=== PATIENT | female | born 1965 | race Two or more races ===

== ENCOUNTER 2020-09-23 13:57 | Outpatient (CLI) | payer BC, SELFPAY | END 2020-09-23 13:58 | disposition home or self-care (01) | LOC: ANHCOVIDVC 13:58 | DX: Z23 Encounter for immunization (principal) | CPT/HCPCS: 0001A; 91300 ==

== ENCOUNTER 2020-10-14 14:03 | Outpatient (CLI) | payer BC, SELFPAY | END 2020-10-14 14:04 | disposition home or self-care (01) | LOC: ANHCOVIDVC 14:04 | DX: Z23 Encounter for immunization (principal) | CPT/HCPCS: 0002A; 91300 ==